=== PATIENT | male | born 1980 | race Caucasian/White ===

== ENCOUNTER 2016-06-23 19:15 | Emergency (ER) | payer MEDICAID | END 2016-06-23 19:42 | disposition left against medical advice (07) | LOC: D.ER 19:15 | DX: M25.511 Pain in right shoulder (principal) ==

== ENCOUNTER 2018-04-17 10:16 | Emergency (ER) | payer MEDICAID ==
[~2018-04-17] VITALS: Ht 182.9 cm; Wt 100.9 kg
[2018-04-17 10:23] VITALS: Ht 182.9 cm; Wt 100.9 kg
[2018-04-17] MEDS ORDERED: BACTRIM 400-801 TAB PO (10:45)
[2018-04-17] MEDS ORDERED: VOLTAREN75 MG PO (10:45)
[2018-04-17 11:25] VITALS: BP 124/73
== END 2018-04-17 11:25 | disposition home or self-care (01) ==
LOC: D.ER 10:16
DX: S91.331A Puncture wound without foreign body, right foot, initial encounter (principal); W45.0XXA Nail entering through skin, initial encounter; Y93.89 Activity, other specified; Y92.019 Unspecified place in single-family (private) house as the place of occurrence of the external cause; L03.115 Cellulitis of right lower limb; F17.200 Nicotine dependence, unspecified, uncomplicated